=== PATIENT | male | born 1985 | race Caucasian/White ===

== ENCOUNTER 2017-05-25 00:49 | Emergency (ER) | payer SELFPAY ==
[~2017-05-25] VITALS: Ht 182.9 cm; Wt 118.8 kg
[2017-05-25] MEDS ORDERED: NARCAN4 MG NS (02:45)
[2017-05-25 03:04] VITALS: BP 146/112
== END 2017-05-25 03:05 | disposition home or self-care (01) ==
LOC: EME 00:49
DX: T40.1X1A Poisoning by heroin, accidental (unintentional), initial encounter (principal); I10 Essential (primary) hypertension; F17.200 Nicotine dependence, unspecified, uncomplicated
CPT/HCPCS: 99281; 99285; J2310